=== PATIENT | female | born 1980 | race Caucasian/White ===

== ENCOUNTER → 2024-10-29 | Outpatient (CLI) | payer BC, SELFPAY ==
--- NOTE | 2024-10-29 12:41 | ECHOD_ITS ---
Reason For Study Reason For Study: Arrhythmia Procedure This was a 2D Doppler, Color Flow transthoracic echocardiogram. Exam performed in department. Left Ventricle Normal LV size. Left ventricular systolic function is normal. The left ventricular ejection fraction is 55 %. Stage 1 diastolic dysfunction. No regional wall motion abnormalities noted. Right Ventricle Normal RV size. Normal systolic function. Atria Normal left atrium. Normal right atrium. Mitral Valve Normal mitral valve. Tricuspid Valve Normal tricuspid valve. Mild tricuspid valve insufficiency. Pulmonary artery systolic pressure is 23 mmHg. Aortic Valve Trisinus/trileaflet aortic valve. Pulmonic Valve Normal pulmonic valve. Great Vessels Normal aortic root. The pulmonary artery is normal size. Inferior vena cava collapse with respiration. Pericardium/Pleural No pericardial effusion. MMode/2D Measurements & Calculations LVIDd: 4.4 cm IVSd: 0.95 cm Ao root diam: 3.0 cm LVIDs: 2.8 cm LVPWd: 0.85 cm RVDd: 3.0 cm FS: 36.0 % LAV(MOD-bp): 36.3 ml LVAd ap4: 24.7 cm2 SV(MOD-sp4): 38.9 ml LAV(MOD-bp) Indexed: 22.1 ml/m2 LVLd ap4: 6.9 cm SI(MOD-sp4): 23.6 ml/m2 LAV(MOD-sp2): 38.0 ml EDV(MOD-sp4): 73.0 ml LAV(MOD-sp4): 29.7 ml EDV(sp4-el): 75.1 ml LVAs ap4: 15.5 cm2 LVLs ap4: 6.2 cm ESV(MOD-sp4): 34.1 ml ESV(sp4-el): 33.3 ml EF(MOD-sp4): 53.3 % EF(sp4-el): 55.6 % SV(sp4-el): 41.8 ml LA A4 area: 13.5 cm2 LA dimension(2D): 3.4 cm RA A4 area: 12.6 cm2 TAPSE: 1.7 cm Time Measurements MV dec time: 0.21 sec Doppler Measurements & Calculations MV E max dejon: 62.2 cm/sec Lat Peak E' Dejon: 14.4 cm/sec Med Peak E' Dejon: 9.7 cm/sec MV A max dejon: 83.2 cm/sec E/E' lat: 4.3 E/E' med: 6.4 MV E/A: 0.75 MV V2 max: 96.1 cm/sec MV P1/2t max dejon: 93.7 cm/sec Ao V2 max: 126.7 cm/sec MV max P.7 mmHg MV P1/2t: 56.6 msec Ao max P.4 mmHg MV V2 mean: 50.0 cm/sec Ao V2 mean: 82.0 cm/sec MV mean P.2 mmHg MV dec slope: 484.7 cm/sec2 Ao mean P.1 mmHg MV V2 VTI: 22.7 cm MVA(P1/2t): 3.9 cm2 Ao V2 VTI: 23.5 cm AV (velocity ratio): 0.87 LV V1 max: 106.1 cm/sec PA V2 max: 92.7 cm/sec TR max dejon: 219.8 cm/sec LV V1 max P.5 mmHg PA V2 mean: 63.5 cm/sec TR max P.3 mmHg LV V1 mean P.5 mmHg LV V1 mean: 73.4 cm/sec LV V1 VTI: 20.5 cm ECHO/Echo Complete Interpretation Summary Normal LV size. Left ventricular systolic function is normal. The left ventricular ejection fraction is 55 %. Stage 1 diastolic dysfunction. Structurally normal valves. Ordering Physician: Roddy Fortune Referring Physician: Roddy Fortune Performed By: Jigar Quintero RCS
== END | disposition home or self-care (01) ==
LOC: CVS 12:41
PROVIDERS: PCP Nurse Practitioner Family; Referring Provider Internal Medicine Cardiovascular Disease; Visit Provider Internal Medicine Cardiovascular Disease
DX: I47.10 Supraventricular tachycardia, unspecified (principal)
CPT/HCPCS: 93306